=== PATIENT | male | born 1975 | race Caucasian/White ===

== ENCOUNTER → 2020-11-20 14:31 | Outpatient (BNVA) | payer MEDICAID, SELFPAY | PROVIDERS: Family Provider Nurse Practitioner Family; PCP Nurse Practitioner Family; Visit Provider Psychiatry & Neurology Psychiatry | DX: F15.20 Other stimulant dependence, uncomplicated (principal) | CPT/HCPCS: 99204 ==

== ENCOUNTER 2022-09-15 08:16 | Emergency (ER) | payer MEDICAID, SELFPAY ==
[2022-09-15 08:25] VITALS: BP 118/83; PULSE 96; RESP 18; TEMP 36.7; O2SAT 97
[2022-09-15 08:29] VITALS: BP 127/90; PULSE 96; O2SAT 98
--- NOTE | 2022-09-15 08:50 | W.ED.WOUNDLC ---
HPI - Wound/Laceration General: Chief Complaint: Abdominal Pain Stated Complaint: back pain/states cant walk Time Seen by Provider: 09/15/22 08:21 History of Present Illness: Patient is a 47-year-old male that comes to the ED with abdominal pain. Patient's been having constipation for the past 4 days and has not had a bowel movement. He is complaining of abdominal pain that started within the last 48 hours and its located in the left lower quadrant of the abdomen and radiates to the left flank and left lower back. Pain worsens with any movement or when he gets up and ambulates. He rates his pain currently a 7 out of 10. When resting pain does improve. He does endorse having some pain on occasion radiating down left leg but says it is very rare. Endorses having some difficulty and pain with urination over the past couple days. Denies any fevers, nausea, vomiting or hematuria. Associated symptoms: Denies chills, fever(s), nausea or vomiting Review of Systems Const: Denies: fever(s), chills or fatigue Eyes: Denies: change in vision or eye discomfort ENMT: Denies: throat pain, odynophagia, nasal discharge or nasal congestion Card: Denies: chest pain, palpitations, edema, swelling of feet/ankles, dyspnea on exertion or orthopnea Resp: Denies: dyspnea, productive cough or non-productive cough GI: Reports: abdominal pain and constipation; Denies: nausea, vomiting, diarrhea, pain on defecation, rectal pain or hematochezia : Reports: flank pain (Left flank), difficulty urinating and dysuria; Denies: hematuria Musc: Denies: neck pain, back pain or extremity swelling Skin/Breast: Denies: rash or new lesions Neuro: Denies: headache(s), numbness in extremities or weakness in extremities PFS ED PFSH: Medical History (Updated 09/15/22 @ 11:36 by FRANKIE Medrano) No pertinent family history Surgical History (Updated 09/15/22 @ 09:08 by FRANKIE Medrano) No pertinent past surgical history Social History (Updated 11/20/20 @ 15:03 by Chuckie Mclean LPN) Smoking and tobacco status: current every day smoker cigarettes and cigars Cigars smoked per week: 30 Years smoked cigars: 25 Quit status (tobacco): considering quitting Second hand smoke exposure: Yes Physical Exam Const: COMMON NORMALS: patient oriented x3 HENMT: COMMON NORMALS: normocephalic HEAD & SCALP: normocephalic MOUTH: Normal oral and palatal mucosa present THROAT: posterior oropharynx normal and uvula midline Neck/C-Spine: COMMON NORMALS: supple GENERAL: Yes normal visual inspection Resp: COMMON NORMALS: normal respiratory effort, No retractions, No use of accessory muscles and clear to auscultation bilaterally AUSCULTATION: clear to auscultation bilaterally Cardio: COMMON NORMALS: regular rate, regular rhythm, S1 normal heart sound present, S2 normal heart sound present, No gallops present (Cardio), No clicks present (Cardio), No murmurs present (Cardio) and Peripheral pulses 2+ throughout RATE: regular rate RHYTHM: regular rhythm HEART SOUNDS: S1 normal heart sound present and S2 normal heart sound present PERIPHERAL PULSES: Peripheral pulses 2+ throughout GI: COMMON NORMALS: Normal to inspection, nondistended, normoactive bowel sounds present, Soft to palpation and no masses PALPATION: Yes Soft to palpation and Yes Tenderness to palpation present (GI) Details: LLQ : COMMON NORMALS: Yes no CVA tenderness BLADDER/KIDNEY EXAM: Yes no CVA tenderness Back/Pelvis: COMMON NORMALS: no CVA tenderness Extremity: COMMON NORMALS: normal to inspection Neuro: COMMON NORMALS: patient oriented x3 GAIT: Yes Normal gait present Skin: GENERAL SKIN EXAM: dry skin Course Vital Signs: Vital signs: Vital Signs Temperature 98.0 F 09/15/22 08:25 Pulse Rate 75 09/15/22 10:59 Respiratory Rate 18 09/15/22 08:25 Blood Pressure 110/83 09/15/22 10:59 Pulse Oximetry 98 09/15/22 10:59 Oxygen Delivery Me thod Room Air 09/15/22 10:59 MDM - Wound/Laceration Medical Decision Making Patient is a 47-year-old male that comes to the ED with abdominal pain. Patient's been having constipation for the past 4 days and has not had a bowel movement. He is complaining of abdominal pain that started within the last 48 hours and its located in the left lower quadrant of the abdomen and radiates to the left flank and left lower back. Pain worsens with any movement or when he gets up and ambulates. He rates his pain currently a 7 out of 10. When resting pain does improve. He does endorse having some pain on occasion radiating down left leg but says it is very rare. Endorses having some difficulty and pain with urination over the past couple days. Denies any fevers, nausea, vomiting or hematuria. Vitals are stable. Patient appears nontoxic in no acute distress or pain. He has some mild left lower quadrant abdominal tenderness but rest of exam is benign. UA shows some white blood cells and bacteria which is suspicious for possible UTI. Abdominal x-ray shows constipation. I wanted to do further evaluation with blood work labs and a CT but patient refused those and did not want any needles did not want to be poked. He signed out AMA and was diagnosed with constipation, back pain and UTI. He was sent home with a prescription for MiraLAX, back trauma and a muscle relaxer. Told to follow-up with his PCP in the next week for reevaluation. Return ED precautions given. Patient understood agree with plan Lab Data Radiology Impressions KUB X-Ray 09/15/22 10:51 IMPRESSION: 1. Constipation. No acute abdominal process. Laboratory Results Urine Color Dark yellow (Yellow) 09/15/22 10:49 Urine Appearance Clear (CLEAR) 09/15/22 10:49 Urine pH 5 (5-7) 09/15/22 10:49 Ur Specific [place] 1.020 (1.005-1.030) 09/15/22 10:49 Urine Protein Neg (Negative) 09/15/22 10:49 Urine Glucose (UA) Norm (Normal) 09/15/22 10:49 Urine Ketones Negative (Negative) 09/15/22 10:49 Urine Blood 2+ (Negative) H 09/15/22 10:49 Urine Nitrate Negative (Negative) 09/15/22 10:49 Urine Bilirubin Neg (Negative) 09/15/22 10:49 Urine Urobilinogen Norm mg/dL (Negative) 09/15/22 10:49 Ur Leukocyte Esterase Negative (Negative) 09/15/22 10:49 Urine RBC 0-4 /hpf (0-2) H 09/15/22 10:49 Urine WBC 5-10 /hpf (0-5) H 09/15/22 10:49 Ur Squamous Epith Cells None /hpf (0-5) 09/15/22 10:49 Amorphous Sediment Not Reportable 09/15/22 10:49 Urine Bacteria Trace /hpf (NONE) 09/15/22 10:49 Urine Mucus Trace /hpf 09/15/22 10:49 Discharge Plan Discharge Patient Disposition: Home Clinical Impression: Constipation, Back pain, UTI (urinary tract infection) Condition: Stable Prescriptions: New Miralax 17 gram/dose powder 17 g PO DAILY 3 Days Qty: 119 0RF Rx Instructions: Take 17 g dose daily for next 3 days then as needed for constipation. methocarbamol 750 mg tablet 750 mg PO Q8H PRN (Reason: Back muscle spasms and pain) Qty: 15 0RF Bactrim DS 800-160 mg tablet 1 tab PO BID 5 Days Qty: 10 0RF No Action buprenorphine HCl 8 mg tablet, sublingual 8 mg sublingual TID Discharge Orders: Discharge ED (Routine); Ordered 09/15/22 Ordered By: Raghu Morrison Discharge Diet: Regular Discharge Activity: Increase activity as tolerated Activity Restrictions/Additional Instructions: Follow-up with medical provider as directed. Take medications as prescribed. Return to the ER or your medical provider if condition worsens. Please read and understand discharge instructions. Thank you for choosing [facility] for your healthcare needs today. Please realize this is an emergency room and that we are providing you with a medical screening exam and this may not be complete and all inclusive of all the testing and or work up that you may need to determine your ailment or severity of your illness. It is very important that you follow up as instructed or that you return to the Emergency Department should you have concerns or if your condition changes or worsens in any way. Stand Alone Forms: Work/School Release Coding Level of Care Code ED Equipment Manager for Alex Gomez
[2022-09-15 09:00] VITALS: BP 129/100; PULSE 92; O2SAT 95
--- NOTE | 2022-09-15 10:51 | XR_ITS ---
WS: [id number] Exam: XR KUB portable [id number] Date/Time of Exam: 09/15/2022 10:52 AM Reason For Exam: Lower abdominal pain and constipation No bowel obstruction or free air. Large amount retained stool in the colon. No sign of organ enlargem ent. Bony structures are intact. Mild thoracolumbar scoliosis. XR/XR KUB portable [id number] IMPRESSION: 1. Constipation. No acute abdominal process.
[2022-09-15 10:59] VITALS: BP 110/83; PULSE 75; O2SAT 98
[2022-09-15 11:16] LABS: Add Urine Microscopic? YES; Bilirubin Urine Neg (Negative); Blood Urine 2+ (Negative); Glucose Urine UA Norm (Normal); Ketones Urine Negative (Negative); Leukocyte Esterase Urine Negative (Negative); Nitrate Urine Negative (Negative); Protein Urine Neg (Negative); Urine Appearance Clear (CLEAR); Urine Color Dark Yellow (Yellow); Urobilinogen Urine Norm (Negative); pH Urine 5 (5-7)
[2022-09-15 11:17] LABS: Add Urine Culture? No; Bacteria Urine TRACE /hpf; Mucus Urine TRACE /hpf; RBC Urine 0-4 /hpf (0-2)
--- NOTE | 2022-09-19 11:51 | DCPLANNER ---
Addendum entered by Janay Rees 09/30/22 13:47: This appointment was cancelled Original Note: executive office manager called patient due to no primary care physician - patient stated that he would like help in getting established with a primary care physician. executive office manager called [facility], gave clinic patients information, a follow up appointment was scheduled for Friday, September 23, 2022 at 8:[address] Meléndez at [facility].
== END 2022-09-15 11:40 | disposition home or self-care (01) ==
PROVIDERS: Emergency Provider Physician Assistant
DX: N39.0 Urinary tract infection, site not specified (principal); K59.00 Constipation, unspecified; M54.9 Dorsalgia, unspecified; F17.210 Nicotine dependence, cigarettes, uncomplicated
CPT/HCPCS: 74018; 81001; 99284

== ENCOUNTER 2022-10-05 07:47 | Emergency (ER) | payer MEDICAID, SELFPAY ==
[2022-10-05] VITALS (11 sets, daily range): BP systolic 101–145; BP diastolic 42–101; PULSE 66–83; O2SAT 94–98; BMI 25.0
--- NOTE | 2022-10-05 08:05 | XRR_ITS ---
PROCEDURE INFORMATION: Exam: XR Lumbosacral Spine Exam date and time: 10/05/2022 8:23 AM Age: 47 years old Clinical indication: Low back pain TECHNIQUE: Imaging protocol: Radiologic exam of the lumbosacral spine. Views: 2 or 3 views. COMPARISON: CR XR KUB portable [id number] 09/15/2022 11:01 AM FINDINGS: Bones/joints: The lumbar spine demonstrates a mildly straightened lordotic curvature. No spondylolisthesis identified. The vertebral bodies maintain normal height. Loss of intervertebral disc height at L5-S1 with mild endplate degenerative changes. Possible neural foraminal narrowing at L4-L5 and L5-S1. Soft tissues: Unremarkable. XR/XR lumbar spine 2-3V* [id number] IMPRESSION: 1. No vertebral body height loss or traumatic malalignment identified. 2. Degenerative disc disease at L5-S1. 3. Possible neural foraminal narrowing at L4-L5 and L5-S1.
--- NOTE | 2022-10-05 08:09 | ED_ITS ---
HPI - Back Pain/Injury General: Chief Complaint: Back Pain/Injury Stated Complaint: back pain/abd pain Time Seen by Provider: 10/05/22 07:56 Source: patient and family Mode of arrival: wheelchair Limitations: no limitations History of Present Illness: Patient presents to the emergency department today brought by his family for evaluation and treatment of low back pain. Patient states that about a month ago he injected fentanyl and methamphetamine which he reports was an old syringe and had old blood in it. He states that since that time he has had severe and unrelenting back pain. Chart review here shows he was seen and evaluated approximately 3 weeks ago for abdominal pains and low back pain however, as he is a difficult needlestick, decided to leave [facility] without a work-up. Patient received a muscle relaxer. Patient's family has a packet with 3 sets of discharge paperwork indicating his evaluations for back pain and abdominal pain. Patient was treated for constipation which he states has resolved. He indicates he is not having issues with abdominal pain but, still feels consisten tly bloated and full in his abdomen. Patient states he runs fevers off and on. He has not had any dysuria or difficulty urinating. Patient is extremely agitated upon checking in. He was heard yelling at the registration desk to hurry up and get him in . In the room, He told me that his pain was so bad he was going to shoot himself . At that time, we stopped his evaluation and I asked him if he was serious. He indicated that he was not and I told him that he cannot say things like that-even in a joking manner because we would take him seriously and consider that a threat of SI. Patient asked me what are you going to do about it ?-and question me on a 96 hour hold. Explained to him that if he was serious about threatening to take his own life due to his pain that we would pursue that threat as legitimate and take steps to protect him. Patient then said he had no intention of hurting himself and that he just wanted his pain treated immediately. Patient told me that we could proceed on with any type of evaluation after I had provided him pain medication. He states he has already tried all the [id number] medications including topical pain patches, Tylenol, and ibuprofen without any improvement of his pain. He states he wants a PICC line placed today. Patient ambulated independently to the bathroom and provided a urine sample. Patient states he is a fentanyl and methamphetamine user but, last use was approximately 1 month ago at the time of this dirty injection . His mom also mentioned he had been on Suboxone up until about a month ago. Review of Systems General: Reports: 10 or more systems reviewed and unremarkable except in HPI and below PFSH ED PFSH: Medical History No pertinent family history Surgical History No pertinent past surgical history Social History Smoking and tobacco status: current every day smoker cigarettes and cigars Cigars smoked per week: 30 Years smoked cigars: 25 Quit status (tobacco): considering quitting Second hand smoke exposure: Yes Physical Exam Const: COMMON NORMALS: no acute distress, patient oriented x3 and alert HENMT: COMMON NORMALS: normocephalic, atraumatic and hearing grossly normal bilaterally HEAD & SCALP: normocephalic and atraumatic Eye: COMMON NORMALS: EOMs intact bilaterally and conjunctivae normal CONJUNCTIVA: Yes conjunctivae normal Neck/C-Spine: COMMON NORMALS: full ROM and no JVD Lymph: LYMPHATIC: no lymphadenopathy noted Resp: COMMON NORMALS: normal respiratory effort, No retractions and No use of accessory muscles Cardio: COMMON NORMALS: no JVD and regular rate RATE: regular rate GI: INSPECTION: Yes abdominal distension AUSCULTATION: Yes Hypoactive bowel sounds present PALPATION: Yes Firmness to palpation present (GI) and No Rebound tenderness present Back/Pelvis: LUMBAR SPINE/LOWER BACK: Yes pain with ROM and Yes lumbar spinal tenderness Extremity: NARRATIVE EXTREMITY EXAM: Patient demonstrates full range of motion to the extremities and is full weightbearing and independently ambulatory in the department though, originally brought back in a wheelchair. Neuro: COMMON NORMALS: patient oriented x3 SENSORIUM/ORIENTATION: Yes alert Psych: COMMON NORMALS: mental status grossly normal, Normal thought process present, normal affect and denies suicidal ideation (after discussion and clarification of his threat ) ATTITUDE: Yes uncooperative, Yes Belligerent attititude/behavior present, Yes agitated and Yes hostile THOUGHT PROCESS: Normal thought process present Skin: COMMON NORMALS: no rashes or lesions noted and turgor normal GENERAL SKIN EXAM: no rashes or lesions noted and turgor normal Course Vital Signs: Vital signs: Vital Signs Pulse Rate 75 10/05/22 15:17 Blood Pressure 117/58 10/05/22 15:17 Pulse Oximetry 96 10/05/22 15:17 Oxygen Delivery Me thod Room Air 10/05/22 15:17 MDM - Back Pain/Injury Medical Decision Making Patient presented to the emergency department today complaining of low back p ain. He indicated he had no abdominal pain however, on his physical examination seem to wince and grunt during his auscultation and palpation. Patient was very difficult to deal with as he is constantly yelling out of his room and calling for staff regularly. Patient is insisting he needs pain medication. However, the emergency room physician is here today are unwilling to provide a narcotic-b ased pain medication given his history of IV drug use and provided him nonnarcotic pain medication with steroids, muscle relaxer, Toradol. Patient was extremely unhappy with the medications he received and indicated that he had been seen at an outside facility and they gave him medicine that helped. Paperwork indicated he received Toradol and Norflex. Explained that it was the same medication he had previously received however, patient indicated that it must not be. We did obtain an x-ray of the lumbar vertebrae which was read as no acute abnormalities. However, patient did have significant findings of distended bowel and bowel air which I was concerned about given his abdominal evaluation. Patient's labs showed a insignificantly elevated white blood cell count but, elevated LFTs and, did have positive findings of hepatitis C. He had a potassium of 2.7 on initial lab work and replacement potassium was provided here in the ER. We proceeded on with a CT examination based on these findings and the CT revealed concerns for paravertebral abscesses in the lumbar region as well as suspected lumbar osteomyelitis. Discussed this finding with Dr. Yadav who recommends starting vancomycin, Zosyn, and Rocephin on the patient. We obtained cultures and a lactic acid prior to starting his medications. I did reach out to Dr. Arreguin who requested a transfer out as their group does not specialize in spine. [facility] to [facility], [facility], [facility] in [facility], and [facility]. Most of these either had 24-hour to 48-hour wait list or, declined admissions. However, I was able to speak with Dr. Small at [facility] in [facility] regarding the patient's evaluation. He indicated that the patient needs to be aware he will be staying for IV antibiotics for quite some time. However, he was willing to admit the patient for this treatment. Discussed with patient and mother the approved admission to [facility] and the need to stay in the hospital for quite a while to receive IV antibiotics. Patient states he und erstood and was willing to go through with the transfer. At this time, continue to care here at [facility] was transferred to Dr. Mayen however transfer arrangements had already been made in an effort to facilitate getting the patient to the next higher level of care. Differential Diagnosis Likely lumbar radiculopathy, sciatica, strain of lumbar region and pyelonep hritis Labs 10/05/22 08:25 10/05/22 08:25 Radiology Impressions Lumbar Spine X-Ray 10/05/22 08:05 IMPRESSION: 1. No vertebral body height loss or traumatic malalignment identified. 2. Degenerative disc disease at L5-S1. 3. Possible neural foraminal narrowing at L4-L5 and L5-S1. Abdomen/Pelvis CT 10/05/22 10:18 IMPRESSION: 1. Bilateral paralumbar soft tissue probable abscesses. 2. Lumbar spine bony destructive changes as described possibly likely representing osteomyelitis. 3. Hepatic cirrhosis. 4. Nonspecific right lobe hepatic lesion. Recommend assessment with triple phase CT, or preferably MRI if not contraindicated. 5. Mild urinary bladder wall thickening. Cystitis not excluded. Clinical correlation with urinalysis is recommended. 6. Borderline splenomegaly. 7. Bilateral renal benign cysts. No follow-up imaging is recommended. COMMENTS: Consistent with the [employer]'s Incidental Findings Committee white paper (J Am Damien Radiol 2018): Any incidental renal lesion less than 1 cm or classified as too small to characterize, or any incidental cystic renal lesion characterized as simple-appearing, is likely benign. No follow-up imaging is recommended for these lesions per consensus recommendations based on imaging criteria. ADDENDUM: 10/05/22 2988 THIS REPORT CONTAINS FINDINGS THAT MAY BE CRITICAL TO PATIENT CARE. The findings were verbally communicated by me to ANGIE Denny via telephone conference at 12:12 PM CDT on 10/05/2022. The findings were acknowledged and understood. Laboratory Results WBC 11.4 10^3/uL (4.0-10.0) H 10/05/22 08:25 RBC 4.10 10^6/uL (4.1-5.3) 10/05/22 08:25 Hgb 11.4 g/dL (11.7-16.6) L 10/05/22 08:25 Hct 35.4 % (42.0-52.0) L 10/05/22 08:25 MCV 86.3 fl (80-94) 10/05/22 08:25 MCH 27.8 pg (28.0-34.0) L 10/05/22 08:25 MCHC 32.2 g/dL (30.0-36.0) 10/05/22 08:25 RDW 13.6 % (12.1-15.1) 10/05/22 08:25 Plt Count 172 10^3/cmm (130-400) 10/05/22 08:25 MPV 11.2 fL (7.4-10.4) H 10/05/22 08:25 Neut % (Auto) 87.9 % 10/05/22 08:25 Lymph % (Auto) 4.4 % 10/05/22 08:25 [place] % (Auto) 6.3 % 10/05/22 08:25 Eos % (Auto) 0.4 % 10/05/22 08:25 Baso % (Auto) 0.4 % 10/05/22 08:25 Neut # (Auto) 9.97 10^3/uL (1.8-7.7) H 10/05/22 08:25 Lymph # (Auto) 0.5 10^3/uL (0.8-4.8) L 10/05/22 08:25 [place] # (Auto) 0.7 10^3/uL (0.2-0.9) 10/05/22 08:25 Eos # (Auto) 0.1 10^3/uL (0.0-0.8) 10/05/22 08:25 Baso # (Auto) 0.1 10^3/uL (0.0-0.1) 10/05/22 08:25 Nucleated RBC % (auto) 0 % 10/05/22 08:25 Nucleated RBCs # 0.0 /100WBC 10/05/22 08:25 ESR 47 mm/hr (0-10) H 10/05/22 08:25 Sodium 137 mmol/L (136-145) 10/05/22 08:25 Potassium 2.7 mmol/L (3.5-5.1) L* 10/05/22 08:25 Chloride 89 mmol/L (98-107) L 10/05/22 08:25 Carbon Dioxide 37 mmol/L (22-29) H 10/05/22 08:25 Anion Gap 13.7 (5-19) 10/05/22 08:25 BUN 14 mg/dL (6-20) 10/05/22 08:25 Creatinine 0.8 mg/dL (0.7-1.2) 10/05/22 08:25 GFR Calculation 102.7 mL/min (90-130) 10/05/22 08:25 Glucose 107 mg/dL (65-115) 10/05/22 08:25 Calculated Osmolality 285 mOsm/kg (285-295) 10/05/22 08:25 Lactic Acid 1.6 mmol/L (0.5-2.2) 10/05/22 13:00 Calcium 8.4 mg/dL (8.5-10.5) L 10/05/22 08:25 Total Bilirubin 0.4 mg/dL (0.15-1.2) 10/05/22 08:25 AST 160 U/L (0-40) H 10/05/22 08:25 ALT 126 U/L (0-41) H 10/05/22 08:25 Alkaline Phosphatase 104 U/L (40-130) 10/05/22 08:25 C-Reactive Protein 297.3 mg/L (0.0-4.9) H 10/05/22 08:25 Total Protein 6.9 g/dL (6.6-8.7) 10/05/22 08:25 Albumin 2.7 g/dL (3.5-5.2) L 10/05/22 08:25 Globulin 4.2 g/dL (1.3-4.6) 10/05/22 08:25 Urine Color Dark yellow (Yellow) 10/05/22 11:20 Urine Appearance Clear (CLEAR) 10/05/22 11:20 Urine pH 9 (5-7) H 10/05/22 11:20 Ur Specific [place] 1.015 (1.005-1.030) 10/05/22 11:20 Urine Protein Neg (Negative) 10/05/22 11:20 Urine Glucose (UA) Norm (Normal) 10/05/22 11:20 Urine Ketones 1+ (Negative) H 10/05/22 11:20 Urine Blood Neg (Negative) 10/05/22 11:20 Urine Nitrate Negative (Negative) 10/05/22 11:20 Urine Bilirubin Neg (Negative) 10/05/22 11:20 Prot Sulfosalicylic Acd Negative (Negative) 10/05/22 11:20 Urine Urobilinogen Norm mg/dL (Negative) 10/05/22 11:20 Ur Leukocyte Esterase Negative (Negative) 10/05/22 11:20 Urine Opiates Screen Negative ng/mL (Negative) 10/05/22 11:20 Ur Barbiturates Screen Negative ng/mL (Negative) 10/05/22 11:20 Ur Phencyclidine Scrn Negative ng/mL (Negative) 10/05/22 11:20 Ur Amphetamines Screen Negative ng/mL (Negative) 10/05/22 11:20 U Benzodiazepines Scrn Positive ng/mL (Negative) H 10/05/22 11:20 Urine Cocaine Screen Negative ng/mL (Negative) 10/05/22 11:20 U Marijuana (THC) Screen Negative ng/mL (Negative) 10/05/22 11:20 Hepatitis A IgM Ab Non-reactive (Nonreactive) 10/05/22 08:25 Hep Bs Antigen Non-reactive (Nonreactive) 10/05/22 08:25 Hep Bs Antibody < 3.5 (11.5-1000) L 10/05/22 08:25 Hep B Core Total Ab Non-reactive (Nonreactive) 10/05/22 08:25 Hepatitis C Antibody Reactive (Nonreactive) H 10/05/22 08:25 SARS-CoV-2 Ag (Rapid) negative (Negative) 10/05/22 16:43 Discharge Plan Discharge Patient Disposition: Transfer to ED Clinical Impression: Acute osteomyelitis of lumbar spine, Abscess, Methamphetamine use disorder, severe, Hepatitis C antibody test positive Condition: Stable Prescriptions: No Action Lidocaine Pain Relief 4 % Adhesive Patch,Medicated 1 patch TOPICAL BID PRN (Reason: Pain) Rx Instructions: on for 12 hours off for 12 hours Zanaflex 4 mg Tablet 4 mg PO Q8H PRN (Reason: Muscle Spasm) Aleve 220 mg Tablet 220 mg PO Q12H PRN (Reason: Pain) ibuprofen 200 mg Tablet 400 mg PO Q8H PRN (Reason: Pain) Maalox 200-200-20 mg/5 mL Suspension 30 ml PO DAILY PRN (Reason: unknown) dicyclomine 10 mg capsule 10 mg PO QID Gas-X 80 mg Tablet,Chewable 80 - 160 mg PO DAILY PRN (Reason: unknown) lactulose 10 gram/15 mL solution 30 ml PO BID Icy Hot 30-10 % Cream 1 applic TOPICAL PRN PRN (Reason: Pain) Discharge Diet: Usual diet Discharge Activity: Increase activity as tolerated Coding Level of Care Code ED Rn Clinical Documentation for Alex Gomez
[2022-10-05] MEDS: ketorolac 30 mg/mL INJ 15 MG IVP (08:30)
[2022-10-05 08:37] LABS: Basophils # 0.1 10^3/uL (0.0-0.1); Basophils % 0.4 %; Eosinophils # 0.1 10^3/uL (0.0-0.8); Eosinophils % 0.4 %; Hematocrit 35.4 % (42.0-52.0); Hemoglobin 11.4 g/dL (11.7-16.6); Lymphocytes # 0.5 10^3/uL (0.8-4.8); Lymphocytes % 4.4 %; Mean Corpuscular HGB Conc 32.2 g/dL (30.0-36.0); Mean Corpuscular Hemoglobin 27.8 pg (28.0-34.0); Mean Corpuscular Volume 86.3 fl (80-94); Mean Platelet Volume 11.2 fL (7.4-10.4); Monocytes # 0.7 10^3/uL (0.2-0.9); Monocytes % 6.3 %; Neutrophils # 9.97 10^3/uL (1.8-7.7); Neutrophils % 87.9 %; Nucleated Red Blood Cells % 0 %; Platelet Count 172 10^3/cmm (130-400); Red Cell Distribution Width 13.6 % (12.1-15.1); White Blood Count 11.4 10^3/uL (4.0-10.0)
[2022-10-05 08:59] LABS: Erythrocyte Sedimentation Rate 47 mm/hr (0-10)
[2022-10-05 09:09] LABS: Alanine Aminotransferase 126 U/L (0-41); Albumin Level 2.7 g/dL (3.5-5.2); Alkaline Phosphatase 104 U/L (40-130); Anion Gap 13.7 (5-19); Aspartate Amino Transferase 160 U/L (0-40); Blood Urea Nitrogen 14 mg/dL (6-20); C Reactive Protein 297.3 mg/L (0.0-4.9); Calcium 8.4 mg/dL (8.5-10.5); Carbon Dioxide 37 mmol/L (22-29); Chloride 89 mmol/L (98-107); Globulin 4.2 g/dL (1.3-4.6); Glomerular Filtration Rate 102.7 mL/min (90-130); Glucose 107 mg/dL (65-115); Osmolality Calculated 285 mOsm/kg (285-295); Sodium 137 mmol/L (136-145); Total Bilirubin 0.4 mg/dL (0.15-1.2); Total Protein 6.9 g/dL (6.6-8.7)
[2022-10-05 09:17] LABS: Potassium 2.7 mmol/L (3.5-5.1)
[2022-10-05 09:25] LABS: Hepatitis A Antibody IgM Non-Reactive (Nonreactive); Hepatitis B Core AB, Total Non-Reactive (Nonreactive); Hepatitis B Surface Antigen Non-Reactive (Nonreactive); Hepatitis C Virus Antibody Reactive (Nonreactive)
[2022-10-05 10:05] LABS: Hepatitis B Surface AB < 3.5 (11.5-1000)
[2022-10-05] MEDS: potassium chloride premix 100 ML 50 MEQ IV (10:16)
--- NOTE | 2022-10-05 10:18 | CTR_ITS ---
PROCEDURE INFORMATION: Exam: CT Abdomen And Pelvis With Contrast Exam date and time: 10/05/2022 10:59 AM Age: 47 years old Clinical indication: Abdominal pain; Additional info: Bloating, bloated abd, elevated lfts, severe lbp TECHNIQUE: Imaging protocol: Computed tomography of the abdomen and pelvis with contrast. Radiation optimization: All CT scans at this facility use at least one of these dose optimization techniques: automated exposure control; mA and/or kV adjustment per patient size (includes targeted exams where dose is matched to clinical indication); or iterative reconstruction. Contrast material: OMNI 350; Contrast volume: 100 ml; Contrast route: INTRAVENOUS (IV); REPORTING DATA: Count of CT and Cardiac NM exams in prior 12 months: This patient has received 0 known CTs and 0 known cardiac nuclear medicine studies in the 12 months prior to the current study. COMPARISON: CR XR KUB portable [id number] 09/15/2022 11:01 AM RADIATION DOSE METRICS: Total DLP (mGy-cm): 571.63 FINDINGS: Lungs: Bibasilar mild pulmonary subsegmental atelectasis is present. Liver: There is a nodular contour to the liver and hypertrophy of the left lobe lateral segment, consistent with hepatic cirrhosis. Nonspecific ill-defined 18 mm superolateral right lobe hepatic segment 6 hypodensity. Gallbladder and bile ducts: Normal. No calcified stones. No ductal dilation. Pancreas: Normal. No ductal dilation. Spleen: The spleen demonstrates a few small granulomatous calcifications. A small anterior splenule is present. The spleen is borderline enlarged measuring 13.1 cm transversely. Adrenal glands: Normal. No mass. Kidneys and ureters: Bilateral renal benign cysts, largest on the right measuring 0.5 cm. Stomach and bowel: Unremarkable. No obstruction. No mucosal thickening. Appendix: The vermiform appendix is normal. Intraperitoneal space: No free air. No significant fluid collection. Vasculature: Calcified phleboliths are present in the lower pelvis bilaterally. Lymph nodes: No enlarged lymph nodes. Urinary bladder: The urinary bladder is partially decompressed and somewhat difficult to assess. Mild urinary bladder wall thickening. Reproductive: Unremarkable as visualized. Bones/joints: Destructive changes of the left lateral L2-L3 facet joint and posterior medial base of L3 transverse process (series 3, images 47-44). No intraspinal abnormality identified. Moderate L4-L5 spinal stenosis. Anterior bridging right sacroiliac joint marginal osteophytes. Posterosuperior left iliac bone 5.2 mm probable benign bone island. Small lumbar spine vertebral body marginal osteophytes. Soft tissues: Bilateral lumbar paraspinous musculature hypodensities, more extensive on the left (erector spinae, quadratus lumborum) at the L1-L2 to mid L4 level (series 3, images 37-34; series 5, image 40), the largest loculation on the left, probably intercommunicating, measuring approximally 5.1 x 3.9 x 6.3 cm (series 6, image 28); mild peripheral marginal enhancement. Smaller abnormality posteriorly on the right at the upper L3 level measuring approximally 1.9 x 1.7 x 1.9 cm (erector spinae). CT/CT abdomen pelvis w con* [id number] IMPRESSION: 1. Bilateral paralumbar soft tissue probable abscesses. 2. Lumbar spine bony destructive changes as described possibly likely representing osteomyelitis. 3. Hepatic cirrhosis. 4. Nonspecific right lobe hepatic lesion. Recommend assessment with triple phase CT, or preferably MRI if not contraindicated. 5. Mild urinary bladder wall thickening. Cystitis not excluded. Clinical correlation with urinalysis is recommended. 6. Borderline splenomegaly. 7. Bilateral renal benign cysts. No follow-up imaging is recommended. COMMENTS: Consistent with the [employer]'s Incidental Findings Committee white paper (J Am Damien Radiol 2018): Any incidental renal lesion less than 1 cm or classified as too small to characterize, or any incidental cystic renal lesion characterized as simple-appearing, is likely benign. No follow-up imaging is recommended for these lesions per consensus recommendations based on imaging criteria.
[2022-10-05] MEDS: sodium chloride 0.9% 1,000 ML 999 ML IV (10:31)
[2022-10-05] MEDS: orphenadrine 30 mg/mL Inj 2 mL 60 MG IVP (10:33)
[2022-10-05] MEDS: iohexol 350 mg/mL 500 mL Btl (per mL) IV (11:03)
[2022-10-05 11:42] LABS: Add Urine Microscopic? NO; Charge for UA Resulting for Rev
[2022-10-05 12:07] LABS: Bilirubin Urine Neg (Negative); Blood Urine Neg (Negative); Glucose Urine UA Norm (Normal); Ketones Urine 1+ (Negative); Leukocyte Esterase Urine Negative (Negative); Nitrate Urine Negative (Negative); Protein Urine Neg (Negative); Specific Gravity, Urine 1.015 (1.005-1.030); Sulfosalicylic Acid Urine Negative (Negative); Urine Appearance Clear (CLEAR); Urine Color Dark Yellow (Yellow); pH Urine 9 (5-7)
[2022-10-05 12:08] LABS: Urobilinogen Urine Norm (Negative)
[2022-10-05 12:09] LABS: Amphetamines Screen Urine Negative (Negative); Barbiturates Screen Urine Negative (Negative); Benzodiazepines Screen Urine Positive (Negative); Cocaine Screen Urine Negative (Negative); Opiate Screen Urine Negative (Negative); PCP Screen Urine Negative (Negative); THC Screen Urine Negative (Negative)
[2022-10-05] MEDS: cefTRIAXone 2,000 MG in sodium chloride 0.9% (plus) 50 ML 100 MG IV (13:24)
[2022-10-05] MEDS: dexamethasone 10 mg/mL INJ IVP (13:25)
[2022-10-05 13:55] LABS: Lactic Sepsis W/Reflex 1.6 mmol/L (0.5-2.2)
[2022-10-05] MEDS: piperacillin-tazobactam 3.375 GM in sodium chloride 0.9% (plus) 50 ML IV (14:14)
[2022-10-05] MEDS: vancomycin 1,000 MG in sodium chloride 0.9% 250 ML 250 MG IV (15:14)
[2022-10-05 17:28] LABS: SARS Covid-2 Antigen negative (Negative)
--- NOTE | 2022-10-06 06:37 | PC.NURSE ---
Received preliminary blood culture results for patient. Advised Dr. Oconnor. Instructed to call [facility] about results and fax results to them. Called and spoke to travel nurse at [facility] and received fax number of [phone]. Faxed to number provided.
[2022-10-06 22:20] LABS: HEP C RNA Viral Load Quant 4840000 IU/mL (NOT DETECTED); HEP C RNA Viral Load Quant 6.68 Log IU/mL (NOT DETECTED)
--- NOTE | 2022-10-12 13:50 | DCPLANNER ---
care process manager called patient due to no primary care physician - no answer at this time.
== END 2022-10-05 18:41 ==
PROVIDERS: Emergency Provider Physician Assistant
DX: M46.26 Osteomyelitis of vertebra, lumbar region (principal); F15.90 Other stimulant use, unspecified, uncomplicated; B19.20 Unspecified viral hepatitis C without hepatic coma; L02.212 Cutaneous abscess of back [any part, except buttock and flank]; F17.210 Nicotine dependence, cigarettes, uncomplicated; Z20.822 Contact with and (suspected) exposure to COVID-19
CPT/HCPCS: 36415; 72100; 74177; 80053; 80306; 81003; 83605; 85025; 85651; 86140; 86705; 86706; 86709; 86803; 87040; 87077; 87150; 87186; 87205; 87340; 87426; 87522; 96365; 96367; 96375; 99285; J0696; J1100; J1885; J2360; J2543; J3370; J3480; J7030; J7050; Q9967